=== PATIENT | male | born 1980 | race Hispanic/Latino ===

== ENCOUNTER 2019-09-06 18:23 | Inpatient (IN) | payer BC, OTHER ==
--- NOTE | 2019-09-06 18:58 | RAD REPORT ---
EXAM DESCRIPTION: RAD - Chest Single View - 09/06/2019 6:49 pm CLINICAL HISTORY: sepsis protocol. Chest pain. COMPARISON: <Comparisons> FINDINGS: Portable technique limits examination quality. The lungs are underinflated with vascular crowding. Mild bilateral pulmonary opacities in the lung ba ses suspected to represent atelectasis. The heart is normal in size. No displaced fractures.
[2019-09-06 19:04] LABS: Absolute Lymphocytes (CBC) 0.5 K/uL (0.7-4.9); Basophils % 2.1 % (0-1.3); Lymphocytes % 6.2 % (15.3-44.8); MPV 7.2 fL (7.6-11.3); RBC Red Blood Cell Count 5.73 M/uL (4.33-5.43)
[2019-09-06 19:05] LABS: Protime INR 1.13
[2019-09-06] MEDS ORDERED: NA CHLORIDE 0.9% 3,000 ML ONE (19:08)
[2019-09-06] MEDS ORDERED: ACETAMINOPHEN 500 MG TAB ONE (19:09)
[2019-09-06] MEDS ORDERED: IBUPROFEN 400 MG TAB ONE (19:09)
[2019-09-06] MEDS ORDERED: IBUPROFEN 200 MG TAB PO ONE (19:09)
[2019-09-06 19:21] LABS: ALT/SGPT 35 U/L (12-78); AST/SGOT 13 U/L (15-37); Alkaline Phosphatase 59 U/L (45-117); BUN Blood Urea Nitrogen 13 mg/dL (7-18); Bicarbonate 27 mmol/L (21-32); Bilirubin Direct 0.2 mg/dL (0-0.2); Bilirubin Total 0.7 mg/dL (0.2-1.0); CKMB Creatine Kinase MB < 1.0 ng/mL (0.3-3.6); Creatine Phosphokinase 185 U/L (39-308); Glucose Level 95 mg/dL (74-106); Lipase 186 U/L (73-393); Potassium 3.6 mmol/L (3.5-5.1); Protein, Total 7.2 g/dL (6.4-8.2); Sodium Level 140 mmol/L (136-145); Troponin (Emerg Dept Use Only) < 0.02 ng/mL (0.0-0.045)
[2019-09-06] MEDS ORDERED: CEFTRIAXONE/SWI 1gm 1 GM/10 ML SYR ONE (19:22)
[2019-09-06] MEDS ORDERED: ALBUTEROL 2.5 MG/3 ML NEB SOL ONE (19:34)
[2019-09-06] MEDS ORDERED: LEVALBUTEROL 1.25 MG/3 ML NEB ONE (19:35)
[2019-09-06] MEDS ORDERED: AZITHROMYCIN 250 MG TAB ONE (21:01)
[2019-09-06] MEDS ORDERED: OSELTAMIVIR 75 MG CAP ONE (21:02)
--- NOTE | 2019-09-06 21:08 | ER ---
Nurse's Notes [facility] Name: Luis Manuel Westbrook Age: 39 yrs Sex: Male : 1980 Arrival Date: 09/06/2019 Time: 18:27 Bed 26 Private MD: Diagnosis: Influenza due to identified novel influenza A virus;Pneumonia, unspecified organism Presentation: 09/06 18:27 Presenting complaint: Malaise, sore throat, productive cough with greenish white hb sputum, pain with cough, headache, body aches, SOB x 2 days. Sent from [facility], told he has Flu A. Transition of care: patient was not received from another setting of care. Onset of symptoms was September 05, 2019. Risk Assessment: Do you want to hurt yourself or someone else? Patient reports no desire to harm self or others. Initial Sepsis Screen: Does the patient meet any 2 criteria? Temp <36.0*C (96.8*F)) or > 38.3*C (100.9*F). HR > 90 bpm. Care prior to arrival: None. 18:27 Method Of Arrival: Ambulatory hb 18:27 Acuity: ROSHAN 2 hb 18:40 Initial Sepsis Screen: Does the patient have a suspected source of infection? No. tr5 Patient's initial sepsis screen is negative. Historical: - Allergies: 18:30 No Known Allergies; hb - Home Meds: 18:30 None [Active]; hb - PMHx: 18:30 None; hb - PSHx: 18:30 None; hb - Immunization history:: Adult Immunizations up to date. - Social history:: Smoking status: Patient/guardian denies using tobacco. - Ebola Screening: : No symptoms or risks identified at this time. Screenin:40 Abuse screen: Denies threats or abuse. Nutritional screening: No deficits noted. tr5 Tuberculosis screening: No symptoms or risk factors identified. Fall Risk None identified. Assessment: 18:31 Reassessment: Code Sepsis Called. hb 18:40 General: Appears uncomfortable, Behavior is calm, cooperative, appropriate for age. tr5 General: Reports chills for fever for 12-24 hours, feeling ill for. Pain: Complains of pain in Generalized. Neuro: Level of Consciousness is awake, alert, obeys commands. Cardiovascular: Heart tones present Capillary refill < 3 seconds. Respiratory: Airway is patent Respiratory effort is even, unlabored, Respiratory pattern is regular, symmetrical. Respiratory: Reports cough that is productive, the patient has moderate shortness of breath. GI: No signs and/or symptoms were reported involving the gastrointestinal system. : No signs and/or symptoms were reported regarding the genitourinary system. EENT: Reports nasal congestion nasal discharge that is watery. Derm: No signs and/or symptoms reported regarding the dermatologic system. Musculoskeletal: No signs and/or symptoms reported regarding the musculoskeletal system. 20:00 Reassessment: Patient appears in no apparent distress at this time. Patient and/or tr5 family updated on plan of care and expected duration. Pain level reassessed. Patient is alert, oriented x 3, equal unlabored respirations, skin warm/dry/pink. 21:00 Reassessment: Patient appears in no apparent distress at this time. No changes from tr5 previously documented assessment. Patient is alert, oriented x 3, equal unlabored respirations, skin warm/dry/pink. 22:12 Reassessment: Patient appears in no apparent distress at this time. Patient and/or tr5 family updated on plan of care and expected duration. Pain level reassessed. Pt is resting in bed. Vital Signs: 18:28 BP 141 / 119; Pulse 104; Resp 24; Temp 101.9(TE); Pulse Ox 95% on R/A; Weight 96.16 kg; hb Height 5 ft. 9 in. (175.26 cm); Pain 10/10; 19:00 BP 106 / 78; Pulse 131; Resp 32; Pulse Ox 94% ; lt1 19:30 BP 103 / 71; Pulse 123; Resp 27; Pulse Ox 95% ; lt1 20:00 BP 93 / 48; Pulse 128; Resp 34; Pulse Ox 95% ; lt1 20:30 BP 99 / 48; Pulse 139; Resp 26; Temp 99.2; Pulse Ox 95% ; lt1 21:00 BP 110 / 66; Pulse 127; Resp 18; Pulse Ox 98% on 2 lpm NC; tr5 21:30 BP 109 / 62; Pulse 121; Resp 16; Pulse Ox 98% on 2 lpm NC; tr5 22:00 BP 106 / 56; Pulse 114; Resp 17; Pulse Ox 98% on 2 lpm NC; tr5 18:28 Body Mass Index 31.31 (96.16 kg, 175.26 cm) hb ED Course: 18:27 Patient arrived in ED. mr 18:28 Triage completed. hb 18:28 Arm band placed on. hb 18:40 Bed in low position. Call light in reach. Side rails up X 1. tr5 18:40 Inserted saline lock: 20 gauge in right forearm, using aseptic technique. Blood hb collected. 18:40 First set of blood cultures drawn. tr5 18:48 Leo Wiggins RN is Primary Nurse. tr5 18:49 Vivien Howard FNP-C is PHCP. kb 18:49 Romeo Whitlock MD is Attending Physician. kb 18:49 Chest Single View XRAY In Process Unspecified. EDMS 18:55 Second set of blood cultures drawn. tr5 21:07 Angelic Silva MD is Hospitalizing Provider. kb 12 00:33 No provider procedures requiring assistance completed. Patient transferred, IV remains tr5 in place. Administered Medications: 09/06 19:11 Drug: Tylenol 1000 mg Route: PO; tr5 21:07 Follow up: Response: Temperature is decreased tr5 19:11 Drug: Ibuprofen 600 mg Route: PO; tr5 21:07 Follow up: Response: Temperature is decreased tr5 19:25 Drug: NS 0.9% (30 ml/kg) 30 ml/kg Route: IV; Rate: bolus; Site: right antecubital; tr5 22:17 Follow up: Response: No adverse reaction; IV Status: Completed infusion; IV Intake: tr5 2884.8ml 19:25 Drug: Rocephin 1 grams Route: IV; Rate: calculated rate; Site: right antecubital; tr5 19:38 Drug: Xopenex (3) 1.25 mg Route: Inhalation; tr5 19:38 Drug: AtroVENT Aerosol 0.5 mg Route: Inhalation; tr5 21:06 Drug: Tamiflu 75 mg Route: PO; tr5 22:16 Follow up: Response: No adverse reaction tr5 21:07 Drug: Zithromax 500 mg Route: PO; tr5 22:17 Follow up: Response: No adverse reaction tr5 Intake: 22:17 IV: 2885ml; Total: 2885ml. tr5 Outcome: 21:08 Decision to Hospitalize by Provider. adams 09/07 00:34 Admitted to Med/surg accompanied by tech, via wheelchair, with chart, Report called to grant Leon RN Condition: stable Instructed on the need for admit. 00:34 Patient left the ED. tr5 Signatures: Dispatcher [employer] EDMS Vivien Howard, WATSON LEDEZMAP-Uli Edwina Tamez Deisy Bee RN RN Lorna Alvarez 1 Leo Wiggins RN RN tr5 Corrections: (The following items were deleted from the chart) 09/06 18:30 18:27 Presenting complaint: Malaise, sore throat, nonproductive cough, headache, body hb aches, SOB x 2 days. hb 18:31 18:27 Presenting complaint: Malaise, sore throat, productive cough with greenish white hb sputum, pain with cough, headache, body aches, SOB x 2 days. hb
--- NOTE | 2019-09-06 21:08 | EDPHYS ---
Physician Documentation [facility] Name: Luis Manuel Westbrook Age: 39 yrs Sex: Male : 1980 Arrival Date: 09/06/2019 Time: 18:27 Bed 26 Private MD: ED Physician Romeo Whitlock HPI: 09/06 20:47 This 39 yrs old Male presents to ER via Ambulatory with complaints of Flu kb Symptoms. 20:47 The patient or guardian reports cough, that is intermittent, described as moderate, kb with no sputum, flu symptoms, low-grade fever, myalgias, no appetite. Onset: The symptoms/episode began/occurred yesterday. Severity of symptoms: At their worst the symptoms were moderate, in the emergency department the symptoms are unchanged. Modifying factors: The symptoms are alleviated by nothing, the symptoms are aggravated by nothing. Associated signs and symptoms: Pertinent positives: fever, rhinorrhea, sore throat, Pertinent negatives: chest pain, diarrhea, ear ache, nausea, vomiting. The patient has not experienced similar symptoms in the past. The patient has not recently seen a physician. Pt states "I started feeling bad yesterday so I took some nyquil before bed. Today I still wasn't feeling too good, but I went to work and made it through the day. I went to Urgent Care when I got off and they tested me for flu and said I was positive for flu a. They recommended I come to the ER for elevated heart rate. I haven't taken any medication since the nyquil last night." . Historical: - Allergies: 18:30 No Known Allergies; hb - Home Meds: 18:30 None [Active]; hb - PMHx: 18:30 None; hb - PSHx: 18:30 None; hb - Immunization history:: Adult Immunizations up to date. - Social history:: Smoking status: Patient/guardian denies using tobacco. - Ebola Screening: : No symptoms or risks identified at this time. ROS: 20:04 Neck: Negative for injury, pain, and swelling, Cardiovascular: Negative for chest pain, kb palpitations, and edema, Abdomen/GI: Negative for abdominal pain, nausea, vomiting, diarrhea, and constipation, Back: Negative for injury and pain, MS/Extremity: Negative for injury and deformity, Skin: Negative for injury, rash, and discoloration, Neuro: Negative for headache, weakness, numbness, tingling, and seizure. 20:04 Constitutional: Positive for body aches, chills, fatigue, fever, malaise. 20:04 ENT: Positive for rhinorrhea, sinus congestion. 20:04 Respiratory: Positive for cough, Negative for dyspnea on exertion, hemoptysis, orthopnea, pleurisy, shortness of breath, sputum production, wheezing. Exam: 20:04 Head/Face: Normocephalic, atraumatic. ENT: Nares patent. No nasal discharge, no kb septal abnormalities noted. Tympanic membranes are normal and external auditory canals are clear. Oropharynx with no redness, swelling, or masses, exudates, or evidence of obstruction, uvula midline. Mucous membranes moist. Neck: Trachea midline, no thyromegaly or masses palpated, and no cervical lymphadenopathy. Supple, full range of motion without nuchal rigidity, or vertebral point tenderness. No Meningismus. Chest/axilla: Normal chest wall appearance and motion. Nontender with no deformity. No lesions are appreciated. Cardiovascular: Regular rate and rhythm with a normal S1 and S2. No gallops, murmurs, or rubs. Normal PMI, no JVD. No pulse deficits. Abdomen/GI: Soft, non-tender, with normal bowel sounds. No distension or tympany. No guarding or rebound. No evidence of tenderness throughout. Back: No spinal tenderness. No costovertebral tenderness. Full range of motion. Skin: Warm, dry with normal turgor. Normal color with no rashes, no lesions, and no evidence of cellulitis. MS/ Extremity: Pulses equal, no cyanosis. Neurovascular intact. Full, normal range of motion. Neuro: Awake and alert, GCS 15, oriented to person, place, time, and situation. Cranial nerves II-XII grossly intact. Motor strength 5/5 in all extremities. Sensory grossly intact. Cerebellar exam normal. Normal gait. 20:04 Constitutional: The patient appears alert, awake, uncomfortable. 20:04 Respiratory: the patient does not display signs of respiratory distress, Respirations: normal, Breath sounds: decreased breath sounds, that are mild, are located in both bases. Vital Signs: 18:28 BP 141 / 119; Pulse 104; Resp 24; Temp 101.9(TE); Pulse Ox 95% on R/A; Weight 96.16 kg; hb Height 5 ft. 9 in. (175.26 cm); Pain 10/10; 19:00 BP 106 / 78; Pulse 131; Resp 32; Pulse Ox 94% ; lt1 19:30 BP 103 / 71; Pulse 123; Resp 27; Pulse Ox 95% ; lt1 20:00 BP 93 / 48; Pulse 128; Resp 34; Pulse Ox 95% ; lt1 20:30 BP 99 / 48; Pulse 139; Resp 26; Temp 99.2; Pulse Ox 95% ; lt1 21:00 BP 110 / 66; Pulse 127; Resp 18; Pulse Ox 98% on 2 lpm NC; tr5 21:30 BP 109 / 62; Pulse 121; Resp 16; Pulse Ox 98% on 2 lpm NC; tr5 22:00 BP 106 / 56; Pulse 114; Resp 17; Pulse Ox 98% on 2 lpm NC; tr5 18:28 Body Mass Index 31.31 (96.16 kg, 175.26 cm) hb MDM: 18:49 Patient medically screened. kb 20:35 Data reviewed: vital signs, nurses notes. Data interpreted: Pulse oximetry: on room air kb is 97 %. Interpretation: normal. Counseling: I had a detailed discussion with the patient and/or guardian regarding: the historical points, exam findings, and any diagnostic results supporting the discharge/admit diagnosis, lab results, radiology results, the need for outpatient follow up, a family practitioner, to return to the emergency department if symptoms worsen or persist or if there are any questions or concerns that arise at home. 20:43 ED course: Discussed diagnostics with pt and given strict return precautions. Pt kb resting comfortably on stretcher. No signs of distress. Speaking in full sentences. . 21:03 Counseling: I had a detailed discussion with the patient and/or guardian regarding: the kb historical points, exam findings, and any diagnostic results supporting the discharge/admit diagnosis, lab results, radiology results, the need for further work-up and treatment in the hospital. ED course: I removed neb treatment from pt. Pt more tachycardiac with hypotension. Stayed in room with pt discussing treatment. Pt still not in distress, but O2 sat dropped to 89% on room air with no exertion. Educated pt that he should be admitted for oxygen, antibiotics, neb treatments and steroids. Pt agrees to stay in hospital. . 09/06 18:40 Order name: Basic Metabolic Panel; Complete Time: 19:27 ss 09/06 18:40 Order name: Blood Culture Adult (2) ss 09/06 18:40 Order name: CBC with Diff; Complete Time: 19:06 ss 09/06 18:40 Order name: Ckmb; Complete Time: 19:27 ss 09/06 18:40 Order name: CPK; Complete Time: 19:27 ss 09/06 18:40 Order name: Lactate; Complete Time: 19:36 ss 09/06 18:40 Order name: LFT's; Complete Time: 19:27 ss 09/06 18:40 Order name: Lipase; Complete Time: 19:27 ss 09/06 18:40 Order name: Procalcitonin; Complete Time: 19:36 ss 09/06 18:40 Order name: Protime (+inr); Complete Time: 19:21 ss 09/06 18:40 Order name: Ptt, Activated; Complete Time: 19:21 ss 09/06 18:40 Order name: Troponin (emerg Dept Use Only); Complete Time: 19:27 ss 09/06 18:40 Order name: Urine Microscopic Only ss 09/06 18:54 Order name: Flu; Complete Time: 19:47 kb 09/06 18:40 Order name: Chest Single View XRAY; Complete Time: 19:08 ss 09/06 18:40 Order name: Accucheck; Complete Time: 18:58 ss 09/06 18:40 Order name: Cardiac monitoring; Complete Time: 18:58 ss 09/06 18:40 Order name: EKG - Nurse/Tech; Complete Time: 19:26 ss 09/06 18:40 Order name: IV Saline Lock - Large Bore; Complete Time: 18:58 ss 09/06 18:40 Order name: Labs collected and sent; Complete Time: 18:58 ss 09/06 19:01 Order name: Glucose, Ancillary Testing; Complete Time: 19:02 EDMS 09/06 21:59 Order name: Urine Dipstick--Ancillary (enter results); Complete Time: 12:02 cm6 09/06 18:40 Order name: O2 Per Protocol; Complete Time: 18:58 ss 09/06 18:40 Order name: O2 Sat Monitoring; Complete Time: 18:58 ss 09/06 18:40 Order name: Urine Dipstick-Ancillary (obtain specimen); Complete Time: 21:40 ss 09/06 20:04 Order name: Vital Signs; Complete Time: 21:12 kb Administered Medications: 19:11 Drug: Tylenol 1000 mg Route: PO; tr5 21:07 Follow up: Response: Temperature is decreased tr5 19:11 Drug: Ibuprofen 600 mg Route: PO; tr5 21:07 Follow up: Response: Temperature is decreased tr5 19:25 Drug: NS 0.9% (30 ml/kg) 30 ml/kg Route: IV; Rate: bolus; Site: right antecubital; tr5 22:17 Follow up: Response: No adverse reaction; IV Status: Completed infusion; IV Intake: tr5 2884.8ml 19:25 Drug: Rocephin 1 grams Route: IV; Rate: calculated rate; Site: right antecubital; tr5 19:38 Drug: Xopenex (3) 1.25 mg Route: Inhalation; tr5 19:38 Drug: AtroVENT Aerosol 0.5 mg Route: Inhalation; tr5 21:06 Drug: Tamiflu 75 mg Route: PO; tr5 22:16 Follow up: Response: No adverse reaction tr5 21:07 Drug: Zithromax 500 mg Route: PO; tr5 22:17 Follow up: Response: No adverse reaction tr5 Disposition: 09/07 09:06 Co-signature as Attending Physician, Romeo Whitlock MD Available for consultation ps1 during the encounter in the ED. Signing chart for administrative purposes. . Disposition: 09/06/19 21:08 Hospitalization ordered by Angelic Silva for Inpatient Admission. Preliminary diagnosis are Influenza due to identified novel influenza A virus, Pneumonia, unspecified organism. - Bed requested for Telemetry/MedSurg (Inpatient). - Status is Inpatient Admission. tr5 - Condition is Stable. - Problem is new. - Symptoms are unchanged. UTI on Admission? No Signatures: Dispatcher [employer] EDMS Vivien Howard, VIKKI-Rochelle FLOREZ-Janette Savage RN RN dw Smirch, Shelby, RN RN ss Baxter, Heather, RN RN hb Singer, Phillip, MD MD ps1 Rodriguez, Tommie, RN RN tr5 Corrections: (The following items were deleted from the chart) 00:02 12 21:08 Hospitalization Ordered by Angelic Silva MD for Inpatient Admission. dw Preliminary diagnosis is Influenza due to identified novel influenza A virus; Pneumonia, unspecified organism. Bed requested for Telemetry/MedSurg (Inpatient). Status is Inpatient Admission. Condition is Stable. Problem is new. Symptoms are unchanged. UTI on Admission? No. kb 09/07 00:34 00:02 09/06/2019 21:08 Hospitalization Ordered by Angelic Silva MD for Inpatient tr5 Admission. Preliminary diagnosis is Influenza due to identified novel influenza A virus; Pneumonia, unspecified organism. Bed requested for Telemetry/MedSurg (Inpatient). Status is Inpatient Admission. Condition is Stable. Problem is new. Symptoms are unchanged. UTI on Admission? No. dw
[2019-09-06 22:08] LABS: Urine Blood NEGATIVE (NEG); Urine Glucose NEGATIVE (NEG); Urine Protein 1+ (NEG); Urine Specific Gravity 1.025 (1.005-1.030); Urine pH 5.5 (5.0-7.0)
[2019-09-06] MEDS ORDERED: NA CHLORIDE 0.9% 1,000 ML ONE (23:22)
[2019-09-07] MEDS: NA CHLORIDE 0.9% 1,000 ML IV SCH ×3 (00:32→15:33)
--- NOTE | 2019-09-07 00:55 | P.HP ---
Certification for Inpatient Patient admitted to: Observation With expected LOS: <2 Midnights Patient will require the following post-hospital care: None Practitioner: I am a practitioner with admitting privileges, knowledge of patient current condition, hospital course, and medical plan of care. Services: Services provided to patient in accordance with Admission requirements found in Title 42 Section 412.3 of the Code of Federal Regulations Patient History Date of Service: 09/07/19 Reason for admission: flu A, PNA, respiratory distress History of Present Illness: ryan bobby is a 39yoM w/ no PCP and no PMHx who presents to [facility] 24hr hx (starting wednesday) of sore throat and productive cough. he states prior to these s/s he was in his normal state of health. he went to work as normal wednesday morning and after went to urgent care, due to weakness and malaise. due to sustained tachycardia he was recommended to present to the ER. he reports a sick contact at work. he reports dizziness, chills, fever w/ tmax 101, and cough. he denies N/V/CP/SOB/anorexia, diarrhea. his last BM was this AM. on ER evaluation he remains tachycardic and on supplemental o2, per lab and imaging he is deemed to have PNA and elevated Cr. he denies etoh, tobacco, and drug use. Allergies No Known Allergies Allergy (Unverified 09/07/19 00:57) Home medications list reviewed: Yes Home Medications: NK [No Home Meds] 10/25/13 - Past Medical/Surgical History Diabetic: No - Family History Mother -: Other (see notes) Notes: denies any chronic medical conditions Father Notes: denies any chonic medical conditions - Social History Alcohol use: No CD- Drugs: No Caffeine use: Yes Review of Systems General: Fever, Chills, Weakness, Malaise, As per HPI Eyes: Unremarkable ENT: Throat Pain Respiratory: Cough Cardiovascular: Unremarkable Gastrointestinal: Unremarkable Genitourinary: Unremarkable Musculoskeletal: Unremarkable Neurological: Weakness, As per HPI Physical Examination - Physical Exam General: Alert, In no apparent distress, Oriented x3 HEENT: Atraumatic, EOMI Neck: Supple Respiratory: Clear to auscultation bilaterally, Normal air movement Cardiovascular: No edema, Other (tachycadia) Gastrointestinal: Hypoactive, Soft and benign, Non-distended, No tenderness, No rebound, No guarding Musculoskeletal: No clubbing, No swelling Integumentary: No rashes Neurological: Normal speech, Other (gait not tested ) External genitalia: Deferred Rectal: Deferred - Studies Laboratory Data (last 24 hrs) 09/06/19 18:40: PT 13.3 H, INR 1.13, APTT 32.3 09/06/19 18:40: WBC 8.7, Hgb 18.2 H, Hct 52.0 H, Plt Count 195 09/06/19 18:40: Sodium 140, Potassium 3.6, BUN 13, Creatinine 1.55 H, Glucose 95 , Total Bilirubin 0.7, AST 13 L, ALT 35, Alkaline Phosphatase 59, Lipase 186 Microbiology Data (last 24 hrs): 09/06/19 19:00 Nasopharnyx Influenza Type A Antigen Screen - Final 09/06/19 19:00 Nasopharnyx Influenza Type B Antigen Screen - Final Assessment and Plan - Plan 39yoM admitted w/ sepsis - tachycardia, hypoxia and fever will trend lactic acid will start on IVF and monitor I/Os monitor on TELE obtain cbc, bmp and coags +Flu A c/w tamiflu symptomatic care PNA - per CXR supplemental o2 w/ NC and maintain o2 > 92% wean as tolerated duonebs and IS c/w IV abx respiratory distress same as above ambulation w/ assistance DVT ppx - SCD encourage ambulation Discharge Plan: Home - Advance Directives Does patient have a Living Will: No Does patient have a Durable POA for Healthcare: No - Code Status/Comfort Care Code Status Assessed: Yes Code Status: Full Code
[2019-09-07 01:15] VITALS: BMI 31.4
[2019-09-07] MEDS: ALBUTEROL 2.5 MG/3 ML NEB SOL NEB SCH ×7 (02:00→20:00)
[2019-09-07] MEDS: IPRATROPIUM BROM 0.5MG/2.5ML NEB SCH ×6 (02:00→20:00)
[2019-09-07] MEDS: HYDROCODONE/APAP 5/325 MG TAB PO PRN ×4 (04:43→20:29)
[2019-09-07 06:05] LABS: Potassium 3.6 mmol/L (3.5-5.1)
[2019-09-07 06:12] LABS: Absolute Lymphocytes (CBC) 0.6 K/uL (0.7-4.9); Basophils % 0.4 % (0-1.3); Hematocrit 46.8 % (39.6-49.0); Lymphocytes % 5.8 % (15.3-44.8); MPV 7.6 fL (7.6-11.3)
[2019-09-07] MEDS: ACETAMINOPHEN 500 MG TAB PO PRN ×3 (06:28→17:19)
[2019-09-07] MEDS ORDERED: DOCUSATE NA 100 MG CAP PO PRN (08:00)
[2019-09-07] MEDS ORDERED: INFLUENZA VACCINE (for 3y+) 0.5 ML DOSE IMVAC ONE (08:00)
[2019-09-07] MEDS: CEFTRIAXONE/SWI 1gm 1 GM/10 ML SYR IV SCH (08:09)
[2019-09-07] MEDS: OSELTAMIVIR 75 MG CAP PO SCH ×2 (08:10→20:26)
[2019-09-07 08:59] LABS: Blood Morphology Comment NOT SEEN (NOT SEEN); Platelet Estimate ADEQ
[2019-09-07] MEDS ORDERED: CEFTRIAXONE 1 GM/NS 50 ML 1 GM/50 ML BAG IV SCH (09:00)
[2019-09-07] MEDS: PHENOL 1.4% ORAL SPRAY 180ML MM PRN ×2 (11:53→15:28)
--- NOTE | 2019-09-07 15:37 | P.PN ---
Subjective Date of Service: 09/07/19 Chief Complaint: flu A, PNA, respiratory distress No changes from yesterday. Patient noted to be moderately dyspneic, coughing. He states his cough is productive of blood-stained sputum. He also reports pleuritic chest pain and sore throat. He is currently maintained on 1 L oxygen by nasal cannula. He remain febrile. Physical Examination - Vital Signs Temperature: 102.2 F Blood Pressure: 134/64 Pulse: 137 Respirations: 18 Pulse Ox (%): 95 - Physical Exam General: Alert, Oriented x3, Moderate distress HEENT: Mucous membr. moist/pink Neck: Other (Patient was gagging and could not examine his pharynx for erythema and exudate) Respiratory: Crackles/rales (Bilateral) Cardiovascular: No edema, Normal S1 S2, Other (Tachycardic) Capillary refill: <2 Seconds Gastrointestinal: Normal bowel sounds, Soft and benign, Non-distended, No tenderness Musculoskeletal: No swelling, No erythema Integumentary: No rashes Neurological: Normal speech, Normal strength at 5/5 x4 extr - Studies Laboratory Data (last 24 hrs) 09/06/19 18:40: PT 13.3 H, INR 1.13, APTT 32.3 09/06/19 18:40: WBC 8.7, Hgb 18.2 H, Hct 52.0 H, Plt Count 195 09/06/19 18:40: Sodium 140, Potassium 3.6, BUN 13, Creatinine 1.55 H, Glucose 95 , Total Bilirubin 0.7, AST 13 L, ALT 35, Alkaline Phosphatase 59, Lipase 186 Microbiology Data (last 24 hrs): 09/06/19 19:00 Nasopharnyx Influenza Type A Antigen Screen - Final 09/06/19 19:00 Nasopharnyx Influenza Type B Antigen Screen - Final Assessment And Plan - Current Problems (Diagnosis) (1) Influenzal pneumonia Current Visit: Yes Status: Acute (2) Influenza A Current Visit: Yes Status: Acute (3) Sepsis Current Visit: Yes Status: Acute - Plan Continue current IV antibiotic-Zithromax and Rocephin Will IV steroid to treat inflammatory response. Bronchodilators. Titrate oxygen Chest physiotherapy Supportive measures with IV hydration and pain management Sputum Gram stain and culture and blood culture are pending.
[2019-09-07] MEDS: METHYLPREDNISOLONE 40 MG INJ IV SCH (17:19)
[2019-09-07] MEDS: AZITHROMYCIN 250 MG TAB PO SCH (20:27)
--- NOTE | 2019-09-07 22:58 | EKG ---
Test Date: 2019-09-06 Test Time: 19:24:46 Furniture Reproducer: NAKULT MEASUREMENT RESULTS: Intervals: Rate: 122 DC: 148 QRSD: 92 QT: 300 QTc: 427 Perry: P: 35 DC: 148 QRS: -10 T: 47 INTERPRETIVE STATEMENTS: Sinus tachycardia Otherwise normal ECG Compared to ECG 10/26/2013 05:41:27 Sinus rhythm no longer present Electronically Signed On 09-07-19 22:57:12 BED MAKER by Robby Parks
[2019-09-08] MEDS: NA CHLORIDE 0.9% 1,000 ML IV SCH ×3 (00:07→15:59)
[2019-09-08] MEDS: METHYLPREDNISOLONE 40 MG INJ IV SCH ×3 (00:07→16:00)
[2019-09-08] MEDS: ACETAMINOPHEN 500 MG TAB PO PRN (00:13)
[2019-09-08] MEDS: IPRATROPIUM BROM 0.5MG/2.5ML NEB SCH ×6 (04:00→20:00)
[2019-09-08] MEDS: ALBUTEROL 2.5 MG/3 ML NEB SOL NEB SCH ×6 (04:00→20:00)
[2019-09-08] MEDS: HYDROCODONE/APAP 5/325 MG TAB PO PRN ×3 (04:28→19:53)
[2019-09-08 05:18] LABS: Absolute Lymphocytes (CBC) 0.8 K/uL (0.7-4.9); Basophils % 0.1 % (0-1.3); Hematocrit 47.8 % (39.6-49.0); Lymphocytes % 5.4 % (15.3-44.8); MPV 7.7 fL (7.6-11.3); RBC Red Blood Cell Count 5.17 M/uL (4.33-5.43)
[2019-09-08 05:32] LABS: Potassium 4.1 mmol/L (3.5-5.1)
[2019-09-08] MEDS: CEFTRIAXONE/SWI 1gm 1 GM/10 ML SYR IV SCH (09:20)
[2019-09-08] MEDS: CALCIUM CARBONATE 500 MG TAB PO SCH ×2 (09:20→19:53)
[2019-09-08] MEDS: OSELTAMIVIR 75 MG CAP PO SCH ×2 (09:20→19:54)
[2019-09-08] MEDS: PHENOL 1.4% ORAL SPRAY 180ML MM PRN (09:30)
--- NOTE | 2019-09-08 10:48 | RAD REPORT ---
EXAM DESCRIPTION: RAD - Chest Single View - 09/08/2019 10:35 am CLINICAL HISTORY: Pneumonia COMPARISON: September 06 TECHNIQUE: AP portable chest image was obtained 1032 hours . FINDINGS: Low lung volumes are again noted. Heart size and vasculature are prominent due to portable technique and shallow inspiration affects. Heart and vessels are not substantially different. Bilateral lung base opacities - atelectasis or infiltrate- show slight improvement. Bilateral costoph renic angle blunting is present new from prior imaging. Small pleural effusions are suspected. IMPRESSION: Lung parenchymal opacification is fractionally improved. Small pleural effusions are not suspected.
--- NOTE | 2019-09-08 15:22 | P.PN ---
Subjective Date of Service: 09/08/19 Chief Complaint: flu A, PNA, respiratory distress Patient states he feels a bit better today. He states the shortness of breath have improved. He stated his cough is still productive of blood-stained sputum. He has been afebrile since this morning. He is currently maintained on 2 L oxygen by nasal cannula. Physical Examination - Vital Signs Temperature: 98.3 F Blood Pressure: 132/78 Pulse: 99 Respirations: 18 Pulse Ox (%): 92 - Physical Exam General: Alert, In no apparent distress, Oriented x3 HEENT: Mucous membr. moist/pink Neck: Supple, JVD not distended Respiratory: Normal air movement, Crackles/rales (Bilateral) Cardiovascular: No edema, Regular rate/rhythm, Normal S1 S2 Capillary refill: <2 Seconds Gastrointestinal: Normal bowel sounds, Soft and benign, No tenderness Musculoskeletal: No swelling Integumentary: No rashes Neurological: Normal speech, Normal strength at 5/5 x4 extr - Studies Laboratory Data (last 24 hrs) 09/08/19 04:08: Sodium 138, Potassium 4.1, BUN 11, Creatinine 1.05, Glucose 121 H 09/08/19 04:08: WBC 14.0 H D, Hgb 16.4, Hct 47.8, Plt Count 139 L Microbiology Data (last 24 hrs): 09/07/19 04:50 Sputum Gram Stain - Final Assessment And Plan - Current Problems (Diagnosis) (1) Influenzal pneumonia Current Visit: Yes Status: Acute (2) Influenza A Current Visit: Yes Status: Acute (3) Sepsis Current Visit: Yes Status: Acute - Plan Repeat chest x-ray reviewed and noted to be stable. Continue current IV antibiotic-Zithromax and Rocephin Continue IV Solu-Medrol and bronchodilators Titrate oxygen Chest physiotherapy Supportive measures with IV hydration and pain management Increase activity as tolerated.
[2019-09-08] MEDS: AZITHROMYCIN 250 MG TAB PO SCH (19:53)
[2019-09-09] MEDS ORDERED: GUAIFENESIN/CODEINE 5ML UCUP PO PRN (00:14)
[2019-09-09] MEDS: METHYLPREDNISOLONE 40 MG INJ IV SCH ×3 (00:48→16:01)
[2019-09-09] MEDS: ALBUTEROL 2.5 MG/3 ML NEB SOL NEB SCH ×6 (04:00→20:00)
[2019-09-09] MEDS: IPRATROPIUM BROM 0.5MG/2.5ML NEB SCH ×6 (04:00→20:00)
[2019-09-09] MEDS: NA CHLORIDE 0.9% 1,000 ML IV SCH ×3 (06:25→13:03)
[2019-09-09] MEDS: CALCIUM CARBONATE 500 MG TAB PO SCH ×2 (08:01→20:32)
[2019-09-09] MEDS: OSELTAMIVIR 75 MG CAP PO SCH (08:01)
[2019-09-09] MEDS: CEFTRIAXONE/SWI 1gm 1 GM/10 ML SYR IV SCH (08:01)
[2019-09-09] MEDS: PANTOPRAZOLE 40MG TABLET PO SCH (10:58)
--- NOTE | 2019-09-09 12:08 | P.PN ---
Subjective Date of Service: 09/09/19 Chief Complaint: flu A, PNA, respiratory distress Patient is complaining of heartburn. He states the shortness of breath have improved and the coughing is getting better. He has been afebrile since this morning. He has been afebrile since yesterday. Physical Examination - Vital Signs Temperature: 98.4 F Blood Pressure: 135/70 Pulse: 108 Respirations: 18 Pulse Ox (%): 93 - Physical Exam General: Alert, In no apparent distress, Oriented x3 HEENT: Mucous membr. moist/pink Neck: Supple Respiratory: Normal air movement (Mild scattered crackles, no wheezes), Diminished Cardiovascular: No edema, Normal S1 S2, Other (Tachycardic) Capillary refill: <2 Seconds Gastrointestinal: Normal bowel sounds, Soft and benign, Non-distended, No tenderness Musculoskeletal: No swelling Integumentary: No rashes Neurological: Normal speech - Studies Microbiology Data (last 24 hrs): 09/07/19 04:50 Sputum Gram Stain - Final 09/07/19 04:50 Sputum Culture & Sensitivity - Final Assessment And Plan - Current Problems (Diagnosis) (1) Influenzal pneumonia Current Visit: Yes Status: Acute (2) Influenza A Current Visit: Yes Status: Acute (3) Sepsis Current Visit: Yes Status: Acute - Plan Clinically improving. Continue current IV antibiotic-Zithromax and Rocephin Continue IV Solu-Medrol and bronchodilators Start oral Protonix Titrate oxygen Chest physiotherapy Supportive measures with IV hydration and pain management Increase activity as tolerated.
[2019-09-09] MEDS: HYDROCODONE/APAP 5/325 MG TAB PO PRN ×2 (16:07→20:32)
[2019-09-09] MEDS: AZITHROMYCIN 250 MG TAB PO SCH (20:33)
[2019-09-10] MEDS: METHYLPREDNISOLONE 40 MG INJ IV SCH (00:17)
[2019-09-10] MEDS: IPRATROPIUM BROM 0.5MG/2.5ML NEB SCH ×4 (03:49→12:17)
[2019-09-10] MEDS: ALBUTEROL 2.5 MG/3 ML NEB SOL NEB SCH ×4 (03:49→12:17)
[2019-09-10] MEDS: NA CHLORIDE 0.9% 1,000 ML IV SCH (04:17)
[2019-09-10 05:40] LABS: Absolute Lymphocytes (CBC) 0.6 K/uL (0.7-4.9); Basophils % 0.2 % (0-1.3); Hematocrit 47.1 % (39.6-49.0); Lymphocytes % 3.8 % (15.3-44.8); MPV 7.7 fL (7.6-11.3); RBC Red Blood Cell Count 5.13 M/uL (4.33-5.43)
[2019-09-10 05:49] LABS: BUN Blood Urea Nitrogen 14 mg/dL (7-18); Bicarbonate 27 mmol/L (21-32); Glucose Level 120 mg/dL (74-106); Potassium 3.8 mmol/L (3.5-5.1); Sodium Level 141 mmol/L (136-145)
[2019-09-10 06:52] LABS: Blood Morphology Comment NOT SEEN (NOT SEEN); Platelet Estimate ADEQ
[2019-09-10] MEDS ORDERED: GUAIFENESIN 600 MG SA TAB PO SCH (09:00)
[2019-09-10] MEDS: CEFTRIAXONE/SWI 1gm 1 GM/10 ML SYR IV SCH (10:01)
[2019-09-10] MEDS: CALCIUM CARBONATE 500 MG TAB PO SCH (10:02)
[2019-09-10] MEDS: PANTOPRAZOLE 40MG TABLET PO SCH (10:02)
--- NOTE | 2019-09-10 10:30 | RAD REPORT ---
EXAM DESCRIPTION: RAD - Chest Pa And Lat (2 Views) - 09/10/2019 9:48 am CLINICAL HISTORY: follow up pneumonia, influenza COMPARISON: September 08 TECHNIQUE: PA and lateral views of the chest were obtained. FINDINGS: The lungs are underinflated which accentuates lung markings. Small right pleural effusion is noted. No significant left pleural effusion. Lung bases are better aerated than prior imaging. The re remains left base opacification. Heart size is normal and central vasculature is within normal limits. No pneumothorax. No acute b kevin finding noted. No aortic abnormality. IMPRESSION: Partial clearing of lung base infiltrate on the left. Remnant opacification remains. Small right pleural effusion.
--- NOTE | 2019-09-10 12:23 | P.DS ---
Admission Date: 09/08/19 Discharge Date: 09/10/19 Primary Care Provider: none Disposition: ROUTINE DISCHARGE Discharge Condition: GOOD Reason for Admission: flu A, PNA, respiratory distress Consultations: none Procedures: Follow up CXR: FINDINGS: The lungs are underinflated which accentuates lung markings. Small right pleural effusion is noted. No significant left pleural effusion. Lung bases are better aerated than prior imaging. There remains left base opacification. Heart size is normal and central vasculature is within normal limits. No pneumothorax. No acute bony finding noted. No aortic abnormality. IMPRESSION: Partial clearing of lung base infiltrate on the left. Remnant opacification remains. Small right pleural effusion. Medical Problem List: Left lower lobe pneumonia and small right pleural effusion with positive influenza A Acute renal injury secondary to dehydration Brief History of Present Illness: 39-year-old male presented to the emergency room with fever, tachypnea and tachycardia. He was seen at urgent care. He was found to be positive for influenza A. Due to his abnormal symptoms the patient was transferred to the ER for further evaluation. Patient found to have left lower lobe pneumonia with positive influenza A. Patient also with acute renal injury. Patient was admitted for further treatment. Hospital Course: Patient presented with cough, congestion, fever, tachycardia and tachypnea. Patient initially seen at urgent care and sent to the ER for further evaluation. Patient found to have influenza A. Chest x-ray showed left lower lobe pneumonia. Patient was admitted for further evaluation and treatment. Patient received IV fluids and antibiotic therapy. His condition improved. At discharge he is without significant respiratory distress. Room-air saturations within normal range. He has been without fever for over 48 hr. At discharge patient will continue with Tamiflu 75 mg 1 pill twice daily for 5 days, Zithromax 250 mg daily for 3 more days, and Augmentin 500 mg twice daily for 5 more days. Patient will also be provided Mucinex 600 mg twice daily for congestion and Robitussin AC 5 mL twice daily as needed for severe cough. Patient will be also be provided Pro air 2 puffs 3 times a day as needed for shortness of breath. Recommend follow up with PCP in 1 week. Recommend recheck chest x-ray in 2-4 weeks to monitor resolution. Patient may return to work after 5-7 days. Patient also had acute renal injury likely from dehydration. Patient received IV fluids with improvement. Patient back to baseline. Vital Signs/Physical Exam: Temp Pulse Resp BP Pulse Ox 97.6 F 91 H 18 109/65 94 09/10/19 08:00 09/10/19 08:00 09/10/19 08:00 09/10/19 08:00 09/10/19 11:37 General: Alert, In no apparent distress, Oriented x3, Cooperative HEENT: Atraumatic Neck: Supple Respiratory: Expiratory wheezes (minimal wheezing) Cardiovascular: Normal pulses, Regular rate/rhythm Gastrointestinal: Normal bowel sounds, Soft and benign, Non-distended, No masses , No rebound, No guarding Musculoskeletal: No erythema, No tenderness, No warmth Integumentary: No tenderness/swelling, No erythema, No warmth, No cyanosis Neurological: Normal speech, Normal strength at 5/5 x4 extr, Normal tone, Normal affect Laboratory Data at Discharge: WBC 15.1 K/uL (4.3-10.9) H 09/10/19 05:26 Hgb 16.2 g/dL (13.6-17.9) 09/10/19 05:26 Hct 47.1 % (39.6-49.0) 09/10/19 05:26 Plt Count 162 K/uL (152-406) 09/10/19 05:26 PT 13.3 SECONDS (9.5-12.5) H 09/06/19 18:40 INR 1.13 09/06/19 18:40 APTT 32.3 SECONDS (24.3-36.9) 09/06/19 18:40 Sodium 141 mmol/L (136-145) 09/10/19 05:26 Potassium 3.8 mmol/L (3.5-5.1) 09/10/19 05:26 BUN 14 mg/dL (7-18) 09/10/19 05:26 Creatinine 0.89 mg/dL (0.55-1.3) 09/10/19 05:26 Glucose 120 mg/dL (74-106) H 09/10/19 05:26 Total Bilirubin 0.7 mg/dL (0.2-1.0) 09/06/19 18:40 AST 13 U/L (15-37) L 09/06/19 18:40 ALT 35 U/L (12-78) 09/06/19 18:40 Alkaline Phosphatase 59 U/L (45-117) 09/06/19 18:40 Lipase 186 U/L (73-393) 09/06/19 18:40 Home Medications: Amoxicillin/Potassium Clav [Augmentin 500-125 Tablet] 1 each PO BID #10 tablet 09/10/19 Azithromycin Tab [Zithromax*] 250 mg PO DAILY #3 tab 09/10/19 Guaifen W/Codeine Syrup [ROBITUSSIN A-C Syrup] 5 ml PO BID PRN #1 bottle Guaifenesin [Mucinex] 600 mg PO BID #10 tab.er.12h 09/10/19 Oseltamivir [Tamiflu*] 75 mg PO BID #10 cap 09/10/19 New Medications: Amoxicillin/Potassium Clav [Augmentin 500-125 Tablet] 1 each PO BID #10 tablet Azithromycin Tab [Zithromax*] 250 mg PO DAILY #3 tab Guaifen W/Codeine Syrup [ROBITUSSIN A-C Syrup] 5 ml PO BID PRN #1 bottle PRN Reason: Cough Guaifenesin [Mucinex] 600 mg PO BID #10 tab.er.12h Oseltamivir [Tamiflu*] 75 mg PO BID #10 cap Patient Discharge Instructions: 1. Recommend follow up with PCP in 1 week to follow up this hospitalization. 2. Patient presented with cough, congestion, fever, tachycardia and tachypnea. Patient initially seen at urgent care and sent to the ER for further evaluation. Patient found to have influenza A. Chest x-ray showed left lower lobe pneumonia. Patient was admitted for further evaluation and treatment. Patient received IV fluids and antibiotic therapy. His condition improved. At discharge he is without significant respiratory distress. Room-air saturations within normal range. He has been without fever for over 48 hr. At discharge patient will continue with Tamiflu 75 mg 1 pill twice daily for 5 days, Zithromax 250 mg daily for 3 more days, and Augmentin 500 mg twice daily for 5 more days. Patient will also be provided Mucinex 600 mg twice daily for congestion and Robitussin AC 5 mL twice daily as needed for severe cough. Patient will be also be provided Pro air 2 puffs 3 times a day as needed for shortness of breath. Recommend follow up with PCP in 1 week. Recommend recheck chest x-ray in 2-4 weeks to monitor resolution. Patient may return to work after 5-7 days. Diet: Regular Activity: Ad vangie Time spent managing pt's care (in minutes): 55
[2019-09-10 12:47] VITALS: O2SAT 94
[2019-09-10] MEDS ORDERED: OSELTAMIVIR 75 MG CAP PO SCH (13:00)
[2019-09-10 14:44] VITALS: BP 133/83; TEMP 97.8
== END 2019-09-10 13:48 | disposition home or self-care (01) | DRG 871 ==
LOC: ER 18:23 → ERHOLD 23:33 → 2ND 09-07 00:25 → OBSVTOIN 09-08 11:03
PROVIDERS: ADMIT Internal Medicine; ATTEND Internal Medicine
DX: A41.9 Sepsis, unspecified organism (principal); J09.X1 Influenza due to identified novel influenza A virus with pneumonia; N17.9 Acute kidney failure, unspecified; J90 Pleural effusion, not elsewhere classified; R06.03 Acute respiratory distress
CPT/HCPCS: 36415; 71045; 71046; 80048; 80076; 81003; 82550; 82553; 82947; 83605; 83690; 84145; 84484; 85025; 85610; 85730; 87040; 87070; 87205; 87804; 93005; 94640; 94760; 96365; 96366; 96375; 99285; G0378; J0696; J2920; J7030; Q2035